=== PATIENT | female | born 1960 | race Caucasian/White ===

== ENCOUNTER 2018-04-02 11:31 | Outpatient (CLI) | payer BC | END 2018-04-02 11:32 | disposition home or self-care (01) | LOC: BICMAMMO 11:31 | PROVIDERS: ATTEND Family Medicine | DX: Z12.31 Encounter for screening mammogram for malignant neoplasm of breast (principal) | CPT/HCPCS: 77063; 77067 ==

== ENCOUNTER 2018-05-14 09:33 | Outpatient (CLI) | payer BC ==
--- NOTE | 2018-05-14 10:23 | BD ---
BONE DENSITOMETRY USING DEXA: Date: 05/14/18 HISTORY: Postmenopausal screening for osteoporosis. FINDINGS: Lumbar Spine: BMD (g/cm2) L1 0.824 T-Score: -1.5 Z-Score: -0.3 L2 0.926 T-Score: -0.9 Z-Score: 0.4 L3 0.984 T-Score: -0.9 Z-Score: 0.5 L4 1.031 T-Score: -0.3 Z-Score: 1.2 L1-L4 0.943 T-Score: -0.9 Z-Score: 0.5 Femoral Neck: 0.779 T-Score: -0.6 Z-Score: 0.6 Total Femur: 0.792 T-Score: -1.2 Z-Score: -0.3 The 10 year fracture risk for a major osteoporotic fracture is 12% and for a hip fracture is 0.3%. IMPRESSION: Osteopenia. POS: [facility]
== END 2018-05-14 09:34 | disposition home or self-care (01) ==
LOC: BICMAMMO 09:33
PROVIDERS: ATTEND Internal Medicine Rheumatology
DX: Z13.820 Encounter for screening for osteoporosis (principal); M85.89 Other specified disorders of bone density and structure, multiple sites; Z78.0 Asymptomatic menopausal state
CPT/HCPCS: 77080

== ENCOUNTER 2018-11-06 11:10 | Emergency (ER) | payer BC ==
--- NOTE | 2018-11-06 11:40 | RAD ---
2 views chest. HISTORY: Cough for 3 days. AP and lateral views of the chest is obtained. The lungs are well aerated. No evidence of active intrathoracic disease seen. No evidence of effusion s, pneumonia or pneumothorax seen IMPRESSION: Unremarkable 2 views chest.
[2018-11-06] MEDS ORDERED: Ibuprofen 200 MG TAB ONE (12:26)
== END 2018-11-06 12:39 | disposition home or self-care (01) ==
LOC: ERS 11:10
DX: T14.8XXA Other injury of unspecified body region, initial encounter (principal); W19.XXXA Unspecified fall, initial encounter

== ENCOUNTER 2023-05-15 12:03 | Day surgery (SDC) | payer BC ==
[2023-05-14 14:12] VITALS: BMI 19.3
[2023-05-15] MEDS ORDERED: Lidocaine 1% w/Epinephrine 1:100K 20 ML VIAL ONE (12:15)
== END 2023-05-15 14:45 | disposition home or self-care (01) ==
LOC: SDC 12:03
PROVIDERS: ATTEND Internal Medicine Cardiovascular Disease
PROC: 0JPT32Z Removal of Monitoring Device from Trunk Subcutaneous Tissue and Fascia, Percutaneous Approach (ICD-10-PCS; principal; 2023-05-15)
DX: R55 Syncope and collapse (principal); R06.02 Shortness of breath; I47.20 Ventricular tachycardia, unspecified; I49.3 Ventricular premature depolarization; R07.1 Chest pain on breathing; Z79.82 Long term (current) use of aspirin; Z79.899 Other long term (current) drug therapy
CPT/HCPCS: 33286; C1764

== ENCOUNTER 2023-07-17 14:16 | Emergency (ER) | payer BC, OTHER, SELFPAY ==
[2023-07-17] MEDS ORDERED: Ibuprofen 200 MG TAB ONE (15:10)
[2023-07-17 15:16] LABS: #Basophils 0.1 thou/uL (0.0-0.2); #Eosinphils 0.1 thou/uL (0.0-0.7); #Monocytes 0.6 thou/uL (0.11-0.59); #Neutrophils 5.6 thou/uL (1.40-6.50); %Basophils 0.9 % (0.0-1.0); %Eosinophils 0.9 % (0.0-10.0); %Lymphocytes 25.7 % (21.0-51.0); %Monocytes 6.8 % (0.0-10.0); %Neutrophils 65.5 % (42.0-75.0); Hematocrit 39.1 % (36.0-47.0); Hemoglobin 13.1 g/dL (12.0-16.0); Mean Corpuscular HGB CONC 33.5 g/dL (32.0-36.0); Mean Corpuscular Hemoglobin 30.8 pg (27.0-31.0); Mean Platelet Volume 10.2 fL (7.4-10.4); Platelet Count 282 10x3/uL (130-400); Red Blood Cell (RBC) Count 4.25 mill/uL (4.20-5.40); White Blood Cell (WBC) Count 8.5 10x3/uL (4.8-10.8)
[2023-07-17 15:41] LABS: ALT (SGPT) 17 U/L (8-55); AST (SGOT) 20 U/L (5-34); Albumin 4.4 g/dL (3.4-4.8); Alkaline Phosphatase 90 U/L (40-110); Anion Gap 14 mmol/L (10-20); BUN (Urea Nitrogen) 19 mg/dL (9.8-20.1); Bilirubin, Total 0.4 mg/dL (0.2-1.2); Calc. Creatinine Clearance 0 mL/min (70-130); Calcium 9.1 mg/dL (7.8-10.44); Carbon Dioxide 22 mmol/L (23-31); Chloride 107 mmol/L (98-107); Estimated GFR 87; Glucose 104 mg/dL (80-115); Protein, Total 7.4 g/dL (5.8-8.1); Sodium 139 mmol/L (136-145)
[2023-07-17 15:43] LABS: Troponin I 0.013 ng/mL (< 0.028)
== END 2023-07-17 16:26 | disposition home or self-care (01) ==
LOC: ERS 14:16
DX: R20.2 Paresthesia of skin (principal)
CPT/HCPCS: 36415; 70450; 71045; 80053; 84484; 85025; 93005